=== PATIENT | female | born 1945 | race Two or more races ===

== ENCOUNTER 2022-12-16 12:37 | Inpatient (IN) | payer MEDICARE, OTHER ==
[~2022-12-16] VITALS: Ht 154.9 cm; Wt 76.8 kg
[2022-12-16 14:00] VITALS: PULSE 73; RESP 16; O2SAT 99
[2022-12-16] MEDS ORDERED: SODIUM CHLORIDE 0.9% 1,000 ML IVB ONE (14:00)
[2022-12-16] MEDS ORDERED: MORPHINE SULFATE 4 MG/ML SYR/VIAL IV ONE (14:00)
[2022-12-16] MEDS ORDERED: ONDANSETRON HCL 4 MG/2 ML VIAL IV ONE (14:00)
[2022-12-16 14:28] LABS: Basophils # (auto) 0.1 10 ^3/uL (0-0.2); Basophils % (auto) 1.5 % (0.0-2.0); Eosinophils # (auto) 0.2 10 ^3/uL (0-0.8); Eosinophils % (auto) 2.6 % (0.0-7.0); Hematocrit 38.5 % (36.0-46.0); Hemoglobin 12.9 g/dL (12.2-16.2); Lymphocytes # (auto) 0.7 10 ^3/uL (0.4-5.4); Lymphocytes % (auto) 8.6 % (10.0-50.0); Mean Corpuscular Hemoglobin 30.7 pg (28.0-32.0); Mean Corpuscular Hgb Conc. 33.6 g/dL (32.0-36.0); Mean Corpuscular Volume 91.4 fL (80.0-100.0); Monocytes # (auto) 0.3 10 ^3/uL (0-1.3); Monocytes % (auto) 3.6 % (0.0-12.0); Neutrophils % (auto) 83.7 % (37.0-80.0); Nucleated Red Blood Cells % 0.1 %; Red Blood Cells 4.21 10^6/uL (4.0-5.20); Red Cell Distribution Width 14.4 % (11.8-14.3); White Blood Cell 8.4 10^3/uL (4.4-10.8)
[2022-12-16 14:38] LABS: Albumin 3.2 g/dL (3.4-5.0); Calcium 8.8 mg/dL (8.5-10.1)
[2022-12-16 14:41] LABS: Bilirubin, Total 2.3 mg/dL (0.2-1.0); Total Protein 7.2 g/dL (6.4-8.2)
[2022-12-16 14:43] LABS: BUN/Creatinine Ratio 23.8 (10.0-20.0)
[2022-12-16] MEDS ORDERED: IOHEXOL 300 MG/ML 100ML BOTTLE IJ ONE (15:08)
[2022-12-16] MEDS ORDERED: levoFLOXacin 500MG 100 ML IV ONE (15:30)
[2022-12-16] MEDS ORDERED: DOCUSATE SOD 100 MG CAP PO PRN (16:15)
[2022-12-16] MEDS ORDERED: HYDROcodone-ACET 5/325MG TAB PO PRN (16:15)
[2022-12-16] MEDS ORDERED: ONDANSETRON HCL 4 MG/2 ML VIAL IV PRN (16:15)
[2022-12-16] MEDS: SODIUM CHLORIDE 0.9% 1,000 ML IV SCH (16:40)
[2022-12-16 19:25] LABS: Urine Bacteria FEW /hpf (None Seen); Urine Blood Negative /uL (Negative); Urine Specific Gravity 1.044 (1.001-1.035); Urine WBC <1 /hpf (0 - 5)
[2022-12-16 20:00] VITALS: PULSE 65; RESP 20; O2SAT 99
[2022-12-16 23:39] VITALS: BP 148/79; PULSE 77; RESP 18; TEMP 97.5; O2SAT 98
[2022-12-17] VITALS (7 sets, daily range): BP systolic 128–144; BP diastolic 52–68; PULSE 72–87; RESP 12–18; TEMP 97.5–98; O2SAT 91–95
[2022-12-17] MEDS ORDERED: ALPR1TAB7 PO (01:15)
[2022-12-17] MEDS ORDERED: TRAM-711 PO (01:15)
[2022-12-17] MEDS: SODIUM CHLORIDE 0.9% 1,000 ML IV SCH ×3 (05:06→22:15)
[2022-12-17 06:15] LABS: Basophils # (auto) 0 10 ^3/uL (0-0.2); Basophils % (auto) 0.2 % (0.0-2.0); Eosinophils # (auto) 0 10 ^3/uL (0-0.8); Eosinophils % (auto) 0.3 % (0.0-7.0); Hemoglobin 11.6 g/dL (12.2-16.2); Lymphocytes # (auto) 2.1 10 ^3/uL (0.4-5.4); Lymphocytes % (auto) 30.9 % (10.0-50.0); Mean Corpuscular Hemoglobin 30.7 pg (28.0-32.0); Mean Corpuscular Hgb Conc. 33.2 g/dL (32.0-36.0); Mean Corpuscular Volume 92.4 fL (80.0-100.0); Monocytes # (auto) 0.7 10 ^3/uL (0-1.3); Monocytes % (auto) 10.4 % (0.0-12.0); Neutrophils % (auto) 58.2 % (37.0-80.0); Nucleated Red Blood Cells % 0.1 %; Red Blood Cells 3.79 10^6/uL (4.0-5.20); Red Cell Distribution Width 14.3 % (11.8-14.3); White Blood Cell 6.9 10^3/uL (4.4-10.8)
[2022-12-17 06:18] LABS: Calcium 8.4 mg/dL (8.5-10.1); Potassium 3.4 mmol/L (3.5-5.1)
[2022-12-17 06:29] LABS: Albumin 2.6 g/dL (3.4-5.0); BUN/Creatinine Ratio 22.9 (10.0-20.0); Bilirubin, Total 2.7 mg/dL (0.2-1.0); Total Protein 6.3 g/dL (6.4-8.2)
[2022-12-17] MEDS: levoFLOXacin 250MG 50 ML IV SCH (09:57)
[2022-12-18] VITALS (7 sets, daily range): BP systolic 116–162; BP diastolic 56–75; PULSE 68–88; RESP 17–19; TEMP 97.6–98.2; O2SAT 92–98
[2022-12-18 06:02] LABS: Basophils # (auto) 0 10 ^3/uL (0-0.2); Basophils % (auto) 0.3 % (0.0-2.0); Eosinophils # (auto) 0 10 ^3/uL (0-0.8); Eosinophils % (auto) 0.4 % (0.0-7.0); Hematocrit 33.7 % (36.0-46.0); Hemoglobin 11.4 g/dL (12.2-16.2); Lymphocytes % (auto) 29.3 % (10.0-50.0); Mean Corpuscular Hemoglobin 31.2 pg (28.0-32.0); Mean Corpuscular Hgb Conc. 33.9 g/dL (32.0-36.0); Monocytes # (auto) 0.7 10 ^3/uL (0-1.3); Monocytes % (auto) 9.7 % (0.0-12.0); Neutrophils # (auto) 4.2 10 ^3/uL (1.6-8.6); Neutrophils % (auto) 60.3 % (37.0-80.0); Nucleated Red Blood Cells % 0.1 %; Red Blood Cells 3.66 10^6/uL (4.0-5.20); Red Cell Distribution Width 13.9 % (11.8-14.3); White Blood Cell 6.9 10^3/uL (4.4-10.8)
[2022-12-18 06:24] LABS: Potassium 3.4 mmol/L (3.5-5.1)
[2022-12-18 06:33] LABS: Albumin 2.6 g/dL (3.4-5.0); BUN/Creatinine Ratio 20.3 (10.0-20.0); Bilirubin, Total 1.1 mg/dL (0.2-1.0); Total Protein 6.4 g/dL (6.4-8.2)
[2022-12-18] MEDS: SODIUM CHLORIDE 0.9% 1,000 ML IV SCH ×2 (09:39→18:15)
[2022-12-18] MEDS: PANTOPRAZOLE 40 MG/10 ML VIAL INJ IV SCH (09:40)
[2022-12-18] MEDS: levoFLOXacin 250MG 50 ML IV SCH (09:41)
[2022-12-18 10:31] LABS: Hepatitis C Antibody Negative (Negative)
[2022-12-18] MEDS ORDERED: TEMAZEPAM 15 MG CAP PO ONE (21:00)
[2022-12-18] MEDS ORDERED: hydrALAZINE HCL 20 MG/ML VL IV ONE (22:45)
[2022-12-19] MEDS: SODIUM CHLORIDE 0.9% 1,000 ML IV SCH ×2 (04:15→14:15)
[2022-12-19 05:00] VITALS: BP 136/76; PULSE 64; RESP 20; TEMP 98.3; O2SAT 96
[2022-12-19 08:00] VITALS: PULSE 84; RESP 18; O2SAT 97
[2022-12-19 08:39] VITALS: BP 138/66; PULSE 75; RESP 17; TEMP 97.9; O2SAT 95
[2022-12-19] MEDS: levoFLOXacin 250MG 50 ML IV SCH (09:17)
[2022-12-19] MEDS: PANTOPRAZOLE 40 MG/10 ML VIAL INJ IV SCH (09:17)
[2022-12-19] MEDS ORDERED: PANT40T PO (10:49)
[2022-12-19] MEDS ORDERED: LEVO500T91 PO (10:49)
[2022-12-19 13:00] VITALS: BP 153/63; PULSE 77; RESP 18; TEMP 98.9; O2SAT 93
[2022-12-19 16:19] VITALS: BP 159/68; TEMP 37.2
[2022-12-19 16:30] VITALS: BP 153/78; PULSE 76; RESP 19; TEMP 97.9; O2SAT 99
== END 2022-12-19 17:35 | disposition home or self-care (01) | DRG 439 ==
LOC: EDBD 12:37 → ER 12:37 → OVERFLOW 16:15 → WEST WING 23:11
PROVIDERS: ADMIT Family Medicine; ATTEND Family Medicine
DX: K85.10 Biliary acute pancreatitis without necrosis or infection (principal); K80.51 Calculus of bile duct without cholangitis or cholecystitis with obstruction; E86.0 Dehydration; F41.9 Anxiety disorder, unspecified; Z88.0 Allergy status to penicillin; Z90.49 Acquired absence of other specified parts of digestive tract; R74.8 Abnormal levels of other serum enzymes
CPT/HCPCS: 36415; 74177; 74181; 80053; 81001; 82962; 83605; 83690; 84484; 85025; 86803; 87340; 93005; C9113; G0378; J1956; J2405

== ENCOUNTER 2023-09-22 23:44 | Emergency (ER) | payer MEDICARE, OTHER ==
[~2023-09-22] VITALS: Ht 160 cm; Wt 65.9 kg
[~2023-09-22 23:44] MED LIST: ALPR1TAB7 PO; LEVO500T91 PO; PANT40T PO; TRAM-711 PO
[2023-09-23 01:00] VITALS: PULSE 87; RESP 18; O2SAT 96
[2023-09-23 01:03] LABS: Basophils # (auto) 0 10 ^3/uL (0-0.2); Basophils % (auto) 0.2 % (0.0-2.0); Eosinophils # (auto) 0 10 ^3/uL (0-0.8); Eosinophils % (auto) 0.2 % (0.0-7.0); Hematocrit 43.2 % (36.0-46.0); Hemoglobin 14.1 g/dL (12.2-16.2); Lymphocytes # (auto) 3.5 10 ^3/uL (0.4-5.4); Lymphocytes % (auto) 31.1 % (10.0-50.0); Mean Corpuscular Hemoglobin 31.8 pg (28.0-32.0); Mean Corpuscular Hgb Conc. 32.7 g/dL (32.0-36.0); Mean Corpuscular Volume 97.5 fL (80.0-100.0); Monocytes # (auto) 0.9 10 ^3/uL (0-1.3); Monocytes % (auto) 7.8 % (0.0-12.0); Neutrophils # (auto) 6.9 10 ^3/uL (1.6-8.6); Neutrophils % (auto) 60.7 % (37.0-80.0); Red Blood Cells 4.43 10^6/uL (4.0-5.20); Red Cell Distribution Width 12.9 % (11.8-14.3); White Blood Cell 11.4 10^3/uL (4.4-10.8)
[2023-09-23 01:14] LABS: Alanine Aminotransferase 12 U/L (7-40); Albumin 4.1 g/dL (3.2-4.8); Alkaline Phosphatase 95 U/L (46-116); Anion Gap 11 (5-15); Aspartate Aminotransferase 27 U/L (13-40); BUN/Creatinine Ratio 25.3 (10.0-20.0); Blood Urea Nitrogen 21 mg/dL (9-23); Calcium 10.1 mg/dL (8.5-10.1); Carbon Dioxide 21 mmol/L (20-30); Chloride 105 mmol/L (98-107); Glucose 98 mg/dL (74-106); Potassium 3.7 mmol/L (3.5-5.1); Sodium 137 mmol/L (136-145)
[2023-09-23 01:15] LABS: Bilirubin, Total 0.7 mg/dL (0.2-1.0); Total Protein 7.4 g/dL (5.7-8.2)
[2023-09-23 01:59] LABS: Urine Bacteria None Seen /hpf (None Seen)
[2023-09-23 02:10] LABS: Urine Blood Negative /uL (Negative); Urine Clarity Turbid (Clear); Urine Color Yellow (Yellow); Urine Mucus FEW (None Seen); Urine Protein, UAD 1+ (Negative); Urine Specific Gravity 1.028 (1.001-1.035); Urine Urobilinogen 2 mg/dL (Negative); Urine WBC 169 /hpf (0 - 5); Urine WBC Clumps PRESENT /hpf (None Seen); Urine pH 5.5 (5.0-9.0)
[2023-09-23 02:45] VITALS: TEMP 97.8
[2023-09-23] MEDS ORDERED: CEPH500C PO (04:41)
[2023-09-23 04:45] VITALS: BP 136/62; PULSE 89; RESP 20; O2SAT 92
== END 2023-09-23 05:40 | disposition home or self-care (01) ==
LOC: ER 23:44
DX: K76.89 Other specified diseases of liver (principal); N39.0 Urinary tract infection, site not specified; Z90.49 Acquired absence of other specified parts of digestive tract; Z88.0 Allergy status to penicillin
CPT/HCPCS: 36415; 74176; 80053; 81001; 85025; 93005